=== PATIENT | female | born 1995 | race Caucasian/White ===

== ENCOUNTER 2021-12-21 02:30 | Day surgery (SDCO) | payer OTHER ==
[~2021-12-21] VITALS: Ht 167.6 cm; Wt 125.2 kg
[2021-12-21 03:22] LABS: BASOPHIL 0.4 % (0-2); EOSINOPHIL 1.9 % (0-5); HCT 42.2 % (37.0-47.0); HGB 14.2 g/dl (12.5-16.0); LYMPHOCYTE 38.4 % (15-48); MCH 29.4 pg (25.0-31.0); MCHC 33.6 g/dL (32.0-36.0); MCV 87.4 fL (78.0-100.0); MONOCYTE 4.7 % (0-12); MPV 9.3 fL (6.0-9.5); NEUTROPHIL 54.3 % (41-80); NRBC 0; PLT 322 K/uL (150-400); RBC 4.83 M/uL (4.20-5.40); RDW 11.7 % (11.5-14.0); WBC 7.9 K/uL (4.0-10.5)
[2021-12-21 03:41] LABS: ALBUMIN 3.9 g/dL (3.4-5.0); BILIRUBIN - TOTAL 0.4 mg/dL (0.2-1.0); BUN/CREAT RATIO (CALC) 10.9 RATIO; CREATININE 1.1 mg/dL (0.51-0.95); GLOBULIN (CALCULATION) 3.9 g/dL; POTASSIUM 3.9 mmol/L (3.5-5.1); TOTAL PROTEIN 7.8 g/dL (6.4-8.2)
[2021-12-21 03:51] LABS: BILIRUBIN NEGATIVE (NEGATIVE); BLOOD NEGATIVE Ery/uL (NEGATIVE); CLARITY CLEAR (CLEAR); COLOR YELLOW (YELLOW); GLUCOSE (U) NORMAL (NORMAL); LEUKOCYTES NEGATIVE Leu/uL (NEGATIVE); NITRITE NEGATIVE (NEGATIVE); PROTEIN TRACE (LOW) mg/dL (NEGATIVE); SPECIFIC GRAVITY >=1.030 (1.001-1.030)
[2021-12-21 06:25] LABS: INFLUENZA A NAA NEGATIVE (NEGATIVE)
[2021-12-21 06:26] LABS: CORONAVIRUS 2019 SARS-COV-2 POSITIVE (NEGATIVE)
[2021-12-21] MEDS ORDERED: WELLBUTRIN75 MG PO (11:23)
[2021-12-21] MEDS ORDERED: MOTRIN600 MG PO (14:53)
[2021-12-21] MEDS ORDERED: OXY-IR 5MG5 MG PO (14:53)
[2021-12-21] MEDS ORDERED: COLACE100 MG PO (14:53)
[2021-12-21] MEDS ORDERED: ACETAMINOPHEN500 M1 PO (14:53)
== END 2021-12-21 19:00 | disposition home or self-care (01) ==
LOC: FER 02:30 → FOR 07:26 → FMS 09:25
PROVIDERS: Internal Medicine; ADMIT Student in an Organized Health Care Education/Training Program
DX: K35.33 Acute appendicitis with perforation, localized peritonitis, and gangrene, with abscess (principal); F41.8 Other specified anxiety disorders; F17.290 Nicotine dependence, other tobacco product, uncomplicated; U07.1 COVID-19; N17.9 Acute kidney failure, unspecified; Z97.5 Presence of (intrauterine) contraceptive device; Z86.16 Personal history of COVID-19; Z91.048 Other nonmedicinal substance allergy status
CPT/HCPCS: 36415; 80053; 81003; 82150; 83690; 84703; 85025; G0378; J1100; J1170; J1644; J2250; J2405; J2543; J2704; J2710; J3010; J7030; J7120; U0002